=== PATIENT | female | born 1975 | race Caucasian/White ===

== ENCOUNTER 2019-10-27 08:25 | Outpatient (CLI) | payer BC, SELFPAY ==
--- NOTE | ~2019-10-27 | US_ITS ---
EXAMINATION: US OB <=14 wk fetus w TV DATE: 10/27/2019 09:16 INDICATION: Contracture supervision abnormal . Establish dating of during first imester. TECHNIQUE: Real-time pelvic ultrasound utilizing both a transvaginal and transabdominal probe was pe rformed. The interpreting radiologist was not present for the study. COMPARISON: 10/08/2018 FINDINGS: The uterus measures 12.2 x 7.6 x 6.3 cm. Small anechoic nabothian cyst at the cervix. There is an int rauterine gestational sac. A yolk sac and pole are identified. The crown rump length measures 5 mm, which correlates with an estimated gestational age of 6 weeks and 2 days. heart motion is identified measuring 129 beats per minute (bpm) by M-mode Doppler. The right ovary was not visualized. The left ovary measures 2.9 x 2.6 x 2.9 cm. After flow is identif ied in the left ovary. There is trace amount of free fluid in the cul-de-sac. IMPRESSION: 1. Single living fetus with heart rate of 129 bpm. 2. Gestational age by ultrasound of 6 weeks 2 day(s) +/- 4 day(s) with ultrasound estimated date of delivery (ANA) of 06/19/2020. Reviewed, dictated and finalized at location A. ALIZER IMPRESSION: 1. Single living fetus with heart rate of 129 bpm. 2. Gestational age by ultrasound of 6 weeks 2 day(s) +/- 4 day(s) with ultraso und estimated date of delivery (ANA) of 06/19/2020.
== END 2019-10-27 08:26 | disposition home or self-care (01) ==
PROVIDERS: Visit Provider Obstetrics & Gynecology
DX: Z34.91 Encounter for supervision of normal pregnancy, unspecified, first trimester (principal); Z3A.01 Less than 8 weeks gestation of pregnancy
CPT/HCPCS: 76801; 76817

== ENCOUNTER 2019-11-10 09:31 | Outpatient (CLI) | payer BC, SELFPAY ==
--- NOTE | ~2019-11-10 | US_ITS ---
EXAMINATION: US OB <= 14 weeks fetus DATE: 11/10/2019 10:06 INDICATION: Gestational dating. TECHNIQUE: Real-time transabdominal and transvaginal obstetric ultrasound. FINDINGS: Ultrasound dated 10/27/2019 The uterus measures 14.8 x 7.4 x 8.6 cm. There is an intrauterine gestational sac, with pole id entified. The crown rump length measures 2.29 cm. heart rate is 171 BPM. No evidence for subch orionic hemorrhage. Right ovary measures 3.4 x 1.8 x 2.4 cm. Left ovary measures 3.4 x 2.2 x 2.3 cm. No significant ovarian or adnexal abnormality. IMPRESSION: 1. SL IUP with an EGA of 8 weeks, 2 days (EDC by initial ultrasound of 06/19/2020). Reviewed, dictated and finalized at location A. ER GUARD IMPRESSION: 1. SL IUP with an EGA of 8 weeks, 2 days (EDC by initial ultrasound of 06/19/20 20).
== END 2019-11-10 09:32 | disposition home or self-care (01) ==
LOC: ANHIMG 09:33
PROVIDERS: Visit Provider Obstetrics & Gynecology
DX: Z32.01 Encounter for pregnancy test, result positive (principal); Z3A.08 8 weeks gestation of pregnancy
CPT/HCPCS: 76801

== ENCOUNTER 2020-04-22 07:48 | Outpatient (RCR) | payer BC, SELFPAY ==
--- NOTE | ~2020-04-22 | US_ITS ---
EXAMINATION: US OB limited DATE: 04/22/2020 08:46 INDICATION: Advanced maternal age, amniotic fluid index assessment, third trimester TECHNIQUE: Real-time ultrasound of the pelvis was performed. The interpreting radiologist was not pre sent for the study. COMPARISON: None. FINDINGS: There is a single living fetus in vertex presentation. The placenta is posterior/fundal. Fe donal cardiac activity and movement are noted. heart rate is 124 beats per minute (bpm). Th e amniotic fluid index is 14.8 cm which is normal (normal range: 8.8 cm to 23.8 cm). IMPRESSION: 1. Single living fetus in vertex presentation. 2. Normal amniotic fluid index. Reviewed, dictated and finalized at location A.
[2020-04-22 08:33] VITALS: BP 97/56; PULSE 61
== END 2020-04-29 08:44 | disposition home or self-care (01) ==
LOC: ANHOBOP 07:48
PROVIDERS: Visit Provider Obstetrics & Gynecology
DX: O09.513 Supervision of elderly primigravida, third trimester (principal); Z3A.31 31 weeks gestation of pregnancy
CPT/HCPCS: 59025; 76815

== ENCOUNTER 2020-06-07 08:44 | Outpatient (RCR) | payer BC, SELFPAY ==
[2020-04-25 22:46] VITALS: BP 114/57; PULSE 63
[2020-04-29 09:47] VITALS: BP 95/41; PULSE 62
[2020-05-06 10:20] VITALS: BP 106/55; PULSE 67
[2020-05-13 09:38] VITALS: BP 103/45; PULSE 65
[2020-05-22 11:16] VITALS: BP 98/40; PULSE 61
[2020-05-27 11:32] VITALS: BP 101/52; PULSE 63
[2020-05-31 09:07] VITALS: BP 101/56; PULSE 60
[2020-06-03 10:21] VITALS: BP 98/45; PULSE 64
--- NOTE | ~2020-06-07 | US_ITS ---
EXAMINATION: US OB limited w BPP DATE: 06/03/2020 11:04 CDT INDICATION: Evaluate well being and amniotic fluid index. TECHNIQUE: Real-time transabdominal limited obstetric ultrasound. FINDINGS: Comparison ultrasound dated 05/31/2020 There is a single living fetus in vertex presentation. The placenta is posterior without placenta pr evia. cardiac activity and movement is noted with a heart rate of 138 beats per minute. Biophysical profile: breathin of 2 movement: 2 of 2 tone: 2 of 2 Amniotic flud pocket: 2 of 2 Total score: 8 of 8 Amniotic fluid index is normal measuring 8.1 cm (normal range for gestational age is 7.5-24.4 cm). IMPRESSION: 1. Single living intrauterine in vertex presentation. 2: Total biophysical profile score of 8/8. 3: Normal BLAINE measures 8.1 cm. Reviewed, dictated and finalized at location B.
--- NOTE | ~2020-06-07 | US_ITS ---
EXAMINATION: US OB limited DATE: 04/29/2020 09:23 INDICATION: Advanced maternal age. Amniotic fluid index. Third trimester. TECHNIQUE: Real-time ultrasound of the pelvis was performed. COMPARISON: Ultrasound 04/22/2020 FINDINGS: There is a single fetus in vertex presentation. The placenta is fundal and posterior. heart ra te is 126 beats per minute (bpm). The amniotic fluid index is 19.0 cm, which is normal. IMPRESSION: 1. Single living fetus in vertex presentation. 2. Normal amniotic fluid index. Reviewed, dictated and finalized at location B.
--- NOTE | ~2020-06-07 | US_ITS ---
US OB limited 05/31/2020 08:58 Indication: Evaluate amniotic fluid. Procedure: High-resolution Limited obstetrical ultrasound Comparison: 05/27/2020 Findings: There is a single living intrauterine in vertex presentation. heart rate 11 4 BPM. Placenta is fundal without previa. BLAINE is normal measuring 8.1 cm (normal range for gestationa l age is 7.5-24.4 cm). Impression: 1: Normal BLAINE measures 8.1 cm. Reviewed, dictated and finalized at location A. Impression: 1: Normal BLAINE measures 8.1 cm.
--- NOTE | ~2020-06-07 | US_ITS ---
US OB limited w BPP DATE: 05/27/2020 09:32 INDICATION: Advanced maternal age TECHNIQUE: Real-time imaging and Doppler analysis COMPARISON: Real-time imaging and Doppler analysis FINDINGS: Live calderon intrauterine gestation, fetus in longitudinal lie, vertex presentation. Feta l heart rate of 131 bpm. Fundal placenta. Amniotic fluid volume is low, with BLAINE of 6.6 cm. 5th percentile BLAINE is 7.7 cm. 95th percentile BLAINE i s 24.9 cm. BIOPHYSICAL PROFILE reported by graphic art technician: breathin out of 2 movement: 2 out of 2 tone: 2 out of 2 Amniotic fluid pocket: 2 out of 2 Total score: 8 out of 8 IMPRESSION: Normal biophysical profile score of 8 out of 8 Oligohydramnios; BLAINE: 6.6 cm Reviewed, dictated and finalized at Location A. Reviewed, dictated and finalized at location A.
--- NOTE | ~2020-06-07 | US_ITS ---
EXAMINATION: US OB limited DATE: 05/06/2020 10:36 INDICATION: Amniotic fluid index. Third trimester. TECHNIQUE: Real-time ultrasound of the pelvis was performed. COMPARISON: Ultrasound 04/29/2020 FINDINGS: There is a single fetus in vertex presentation. The placenta is posterior and fundal. heart ra te is 132 beats per minute (bpm). The amniotic fluid index is 11.3 cm, which is normal. IMPRESSION: 1. Single living fetus in vertex presentation. 2. Normal amniotic fluid index. Reviewed, dictated and finalized at location A.
--- NOTE | ~2020-06-07 | US_ITS ---
US OB limited DATE: 06/07/2020 09:43 INDICATION: AMA Measure BLAINE. TECHNIQUE: Real-time imaging and Doppler analysis COMPARISON: 06/03/2020 obstetrical ultrasound with biophysical profile FINDINGS: Live calderon intrauterine gestation, fetus in vertex presentation, with heart rate of 125 bpm. Posterior fundal placenta. Amniotic fluid index measures 10.9 cm. 5th percentile BLAINE: 7.3 cm; 95th percentile BLAINE: 23.9 cm. IMPRESSION: BLAINE measures 10.9 cm, within more normal range Reviewed, dictated and finalized at Location A. Reviewed, dictated and finalized at location A.
--- NOTE | ~2020-06-07 | US_ITS ---
EXAMINATION: US OB limited DATE: 05/22/2020 11:02 INDICATION: Advanced maternal age. Decreased movement. Third trimester. TECHNIQUE: Real-time ultrasound of the pelvis was performed. COMPARISON: Ultrasound 05/13/2020 FINDINGS: There is a single fetus in vertex presentation. The placenta is fundal. heart rate is 134 beat s per minute (bpm). The amniotic fluid index is 10.4 cm, which is normal. IMPRESSION: 1. Single living fetus in vertex presentation. 2. Normal amniotic fluid index. Reviewed, dictated and finalized at location A.
--- NOTE | ~2020-06-07 | US_ITS ---
EXAMINATION: US OB limited DATE: 05/13/2020 09:30 INDICATION: Assess amniotic fluid index during third trimester of TECHNIQUE: Real-time ultrasound of the pelvis was performed. The interpreting radiologist was not pre sent for the study. COMPARISON: 05/06/2020 FINDINGS: There is a single living fetus in vertex presentation. The placenta is posterior fundal. heart rate is 135 beats per minute (bpm). The amniotic fluid index is 21.2 cm, which is normal (5th%-95%: 8.1-24.8 cm at 34 weeks estimated gestational age). IMPRESSION: 1. Single living fetus in vertex presentation with heart rate of 135 bpm. 2. Normal amniotic fluid index of 21.2 cm. Reviewed, dictated and finalized at location A. IMPRESSION: 1. Single living fetus in vertex presentation with heart rate of 135 bpm . 2. Normal amniotic fluid index of 21.2 cm.
[2020-06-07 09:19] VITALS: BP 104/63; PULSE 60
== END 2020-06-10 08:00 | disposition home or self-care (01) ==
LOC: ANHOBOP 08:44
PROVIDERS: Family Provider Obstetrics & Gynecology; Visit Provider Obstetrics & Gynecology
DX: O36.8130 Decreased fetal movements, third trimester, not applicable or unspecified (principal); O09.513 Supervision of elderly primigravida, third trimester; Z3A.32 32 weeks gestation of pregnancy; Z3A.33 33 weeks gestation of pregnancy; Z3A.34 34 weeks gestation of pregnancy; Z3A.36 36 weeks gestation of pregnancy; Z3A.37 37 weeks gestation of pregnancy; Z3A.38 38 weeks gestation of pregnancy
CPT/HCPCS: 59025; 76815; 76819

== ENCOUNTER 2020-06-08 18:03 | Inpatient (IN) | payer BC, SELFPAY ==
[2020-06-08] VITALS (15 sets, daily range): BP systolic 66–127; BP diastolic 42–68; PULSE 60–70; RESP 18–20; TEMP 36.5–36.8; BMI 47.8
--- NOTE | 2020-06-08 18:03 | LDADM ---
This patient, Tammy Del Valle, was admitted to Labor/Delivery/Recovery 106 on 06/08/20 at 18:03. Plans for labor, pain management and were discussed with patient. Patient/family oriented to hospital policies and general routines including ID bracelet, bed and alarms, visiting hours, pain management, procedures, bathroom and other care routines, personal items, smoking policy, room service/diet and guest tray routines, security routines, and visiting hours. Patient/Family are encouraged to report perceived risks to care and to ask questions if they do not understand what they are told or what they should do. See OBIX for further documentation.
[2020-06-08] MEDS: AMPICILLIN 2 GM/NS 100 ML 2 GM/100 ML BAG IVPB (18:57)
[2020-06-08] MEDS: LACTATED RINGERS 1,000 ML 125 ML IV CONT (18:57)
[2020-06-08 18:58] LABS: Basophils Percent Auto 0.4 % (0.2-1.2); Eosinophils Absolute Auto 0.1 K/mm3 (0-0.3); Eosinophils Percent Auto 1.2 % (0-4.4); Hematocrit 37.1 % (37.0-47.0); Hemoglobin 12.7 g/dL (12.0-15.0); Immature Granulocyte Absolute 0.05 K/mm3 (0.00-0.031); Immature Granulocyte Percent A 0.5 % (0-0.5); Lymphocytes Absolute Auto 2.46 K/mm3 (0.9-3.2); Lymphocytes Percent Auto 22.3 % (18.3-44.2); Mean Corpuscular HGB Conc 34.2 g/dl (32-36); Mean Corpuscular Hemoglobin 31.5 pg (26-34); Mean Corpuscular Volume 92.1 fl (80-100); Monocytes Absolute Auto 0.7 K/mm3 (0.1-0.6); Monocytes Percent Auto 6.7 % (2.6-8.5); Neutrophils Absolute Auto 7.6 K/mm3 (1.3-6.7); Neutrophils Percent Auto 68.9 % (45.5-73.1); Platelet Count Result 210 k/mm3 (150-375); Red Blood Count 4.03 M/mm3 (4.2-5.4); Red Cell Distribution Width 12.4 % (11.5-14.5)
[2020-06-08 19:51] LABS: HIV 1/2 Ab P24 Ag Result Negative (Negative)
[2020-06-08] MEDS: OXYTOCIN 30 UNITS/NS 500 ML 30 UNITS/500 ML BAG IV CONT (22:43)
[2020-06-08] MEDS: AMPICILLIN 1 GM/NS 50 ML 1 GM/50 ML BAG IVPB (22:57)
[2020-06-09] VITALS (115 sets, daily range): BP systolic 68–167; BP diastolic 34–121; PULSE 48–222; RESP 16–20; TEMP 36.4–37.1; O2SAT 95–100
[2020-06-09] MEDS: AMPICILLIN 1 GM/NS 50 ML 1 GM/50 ML BAG IVPB ×2 (03:11→08:01)
[2020-06-09] MEDS: fentaNYL CITRATE INJ (*CRX) 100 MCG/2 ML VIAL 50 MCG IV PUSH (04:13)
[2020-06-09] MEDS: LACTATED RINGERS 1,000 ML 125 ML IV CONT (04:34)
--- NOTE | 2020-06-09 04:40 | WPDANESEPPF ---
Anes - Initial Pre Proc Eval Procedure: labor epidural Date/Time: 06/09/20 04:40 Surgeon: Emmett Gipson MD Pre Op Diagnosis: labor pain Pre Op Diagnosis: SROM Patient Data Age: 44 Gender: F Height: 1.68 m Weight: 134.5 kg Last Vital Signs Temp 36.8 C 06/09/20 03:13 Pulse 65 06/09/20 04:39 Resp 18 06/09/20 03:13 BP 97/70 L 06/09/20 04:39 Pulse Ox 100 06/09/20 04:38 Allergies Allergy/AdvReac Type Severity Reaction Status Date / Time cefprozil Allergy Unknown Hives Verified 06/03/20 08:34 Home Medications Medication Instructions Recorded Confirmed Type vits 75-iron 28 mg-folic 1 pkg PO DAILY 11/19/19 06/08/20 History acid 800 mcg-omega-3 oral combo pack cetirizine [Zyrtec] 10 mg PO DAILY PRN 04/29/20 06/08/20 History cholecalciferol (vitamin D3) 50 mcg PO DAILY 04/29/20 06/08/20 History [Vitamin D3] nadolol 40 mg PO HS 04/29/20 06/08/20 History Laboratory Tests 06/08/20 06/08/20 06/08/20 18:51 18:51 18:51 WBC 11.0 K/mm3 H K/mm3 (4.5-10.0) RBC 4.03 M/mm3 L M/mm3 (4.2-5.4) Hgb 12.7 g/dL g/dL (12.0-15.0) Hct 37.1 % % (37.0-47.0) MCV 92.1 fl fl (80-100) MCH 31.5 pg pg (26-34) MCHC 34.2 g/dl g/dl (32-36) RDW 12.4 % % (11.5-14.5) Plt Count 210 k/mm3 k/mm3 (150-375) MPV 11.0 fl H fl (7.4-10.4) Immature Gran % (Auto) 0.5 % % (0-0.5) Neut % (Auto) 68.9 % % (45.5-73.1) Lymph % (Auto) 22.3 % % (18.3-44.2) [place] % (Auto) 6.7 % % (2.6-8.5) Eos % (Auto) 1.2 % % (0-4.4) Baso % (Auto) 0.4 % % (0.2-1.2) Lymph # (Auto) 2.46 K/mm3 K/mm3 (0.9-3.2) [place] # (Auto) 0.7 K/mm3 H K/mm3 (0.1-0.6) Eos # (Auto) 0.1 K/mm3 K/mm3 (0-0.3) Baso # (Auto) 0.0 K/mm3 K/mm3 (0.0-0.1) Abs Immat Gran (auto) 0.05 K/mm3 H K/mm3 (0.00-0.031) Absolute Neuts (auto) 7.6 K/mm3 H K/mm3 (1.3-6.7) Absolute Nucleated RBC 0.0 K/mm3 K/mm3 (0.0-0.012) Nucleated RBC % 0.0 % % (0.0-0.2) RPR Pending HIV 1&2 Ab/P24 Ag 4thGn Negative (Negative) Blood Type Antibody Screen 06/08/20 18:51 WBC RBC Hgb Hct MCV MCH MCHC RDW Plt Count MPV Immature Gran % (Auto) Neut % (Auto) Lymph % (Auto) [place] % (Auto) Eos % (Auto) Baso % (Auto) Lymph # (Auto) [place] # (Auto) Eos # (Auto) Baso # (Auto) Abs Immat Gran (auto) Absolute Neuts (auto) Absolute Nucleated RBC Nucleated RBC % RPR HIV 1&2 Ab/P24 Ag 4thGn Blood Type A Positive Antibody Screen Negative Patient hx anesthesia problems: none Family hx anesthesia problems: none PMFSH Social History Social History Smoking status: Never smoker Second hand tobacco smoke exposure: No Alcohol intake: former Substance use: never Spiritual care concerns: No Anes - Eval Final PreProcedure Day of Procedure 06/09/20 04:40 Patient weight: morbidly obese ASA classification: III Anesthesia type and monitoring: regional epidural Informed Consent: The patient's anesthetic plan and its attendant risks and benefits were discussed with the patient/family/POA. Questions were solicited and answers provided to the satisfaction of the patient/family/POA.
--- NOTE | 2020-06-09 07:29 | PM.IMHP ---
H&P: HPI History of Present Illness Date/Time: 06/09/20 07:29 Chief complaint: SROM Narrative: Tammy Del Valle is a 44 year old female at 38/4/7 by EDC 06/19/2020 established by first trimester ultrasound that was not consistent with period. Presented with SROM 1600 clear. 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 PNC significant for AMA, history of prolonged QT, asymptomatic. On betablocker. Has had normal testing and normal growth ultrasounds. Review of Systems Review of Systems: All systems reviewed & are unremarkable except as noted in HPI and below Constitutional: Constitutional: Reports no additional constitutional complaints and Denies headache(s) Eyes: Eyes: Denies spots in vision ENT: Reports system reviewed and no additional complaints, except as documented and Denies headache(s) Cardiovascular: Cardiovascular: Denies chest pain and Denies dyspnea Respiratory: Respiratory: Denies dyspnea Gastrointestinal: Gastrointestinal: Reports no additional gastrointestinal complaints Genitourinary: Genitourinary: Reports amenorrhea Musculoskeletal: Musculoskeletal: Reports no additional musculoskeletal complaints Integumentary/Breasts: Skin/Breast: Denies breast mass and Denies rash Neurologic: Denies headache(s) Psychiatric: Psychiatric: Reports no additional psychiatric complaints PMFSH Social History Social History Smoking status: Never smoker Second hand tobacco smoke exposure: No Alcohol intake: former Substance use: never Spiritual care concerns: No Meds Home Medications and Allergies Home Medications Medication Instructions Recorded Confirmed Type vits 75-iron 28 mg-folic 1 pkg PO DAILY 11/19/19 06/08/20 History acid 800 mcg-omega-3 oral combo pack cetirizine [Zyrtec] 10 mg PO DAILY PRN 04/29/20 06/08/20 History cholecalciferol (vitamin D3) 50 mcg PO DAILY 04/29/20 06/08/20 History [Vitamin D3] nadolol 40 mg PO HS 04/29/20 06/08/20 History Allergies Allergy/AdvReac Type Severity Reaction Status Date / Time cefprozil Allergy Unknown Hives Verified 06/03/20 08:34 Vital Signs Vital Signs - 24 hr 06/08/20 18:20 06/08/20 18:21 06/08/20 18:31 Temperature 97.9 F Pulse Rate 64 60 Respiratory Rate 20 Blood Pressure 117/61 111/57 L Pulse Oximetry 06/08/20 19:14 06/08/20 19:15 06/08/20 21:02 Temperature 97.7 F 97.9 F Pulse Rate 62 Respiratory Rate 18 20 Blood Pressure 94/45 L Pulse Oximetry 06/08/20 21:03 06/08/20 22:26 06/08/20 22:46 Temperature Pulse Rate 62 70 62 Respiratory Rate Blood Pressure 101/68 127/46 L 105/51 L Pulse Oximetry 06/08/20 22:59 06/08/20 23:01 06/08/20 23:07 Temperature 98.3 F Pulse Rate 68 63 Respiratory Rate 20 Blood Pressure 66/55 L 104/42 L Pulse Oximetry 06/08/20 23:16 06/08/20 23:31 06/08/20 23:46 Temperature Pulse Rate 61 65 65 Respiratory Rate Blood Pressure 106/43 L 94/45 L 103/49 L Pulse Oximetry 06/09/20 00:01 06/09/20 00:16 06/09/20 00:31 Temperature Pulse Rate 60 59 L 59 L Respiratory Rate Blood Pressure 106/52 L 113/53 L 113/72 Pulse Oximetry 06/09/20 00:46 06/09/20 01:00 06/09/20 01:01 Temperature 97.6 F Pulse Rate 53 L 55 L Respiratory Rate 20 Blood Pressure 115/62 109/60 Pulse Oximetry 06/09/20 01:17 06/09/20 01:31 06/09/20 01:46 Temperature Pulse Rate 68 82 112 H Respiratory Rate Blood Pressure 127/71 118/37 L 83/42 L Pulse Oximetry 06/09/20 02:00 06/09/20 02:17 06/09/20 02:30 Temperature Pulse Rate 112 H 75 80 Respiratory Rate Blood Pressure 106/72 88/54 L 108/90 Pulse Oximetry 06/09/20 02:46 06/09/20 03:02 06/09/20 03:13 Temperature 98.2 F Pulse Rate 68 71 Respiratory Rate 18 Blood Pressure 109/50 L 132/87 Pulse Oximetry 06/09/20 03:16 06/09/20 03:30 06/09/20 03:46 Temperature Pulse Rate 92 67 7
--- NOTE | 2020-06-09 07:32 | PM.OBPNLAB ---
Pain Control Date/time seen: 06/09/20 07:32 FHT 120, Cat 1, continue pitocin -/-2 soft.
[2020-06-09] MEDS: OXYTOCIN 30 UNITS/NS 500 ML 30 UNITS/500 ML BAG 125 UNITS IV CONT (09:24)
[2020-06-09 11:11] LABS: Rapid Plasma Reagin Non-Reactive (NonReactive)
[2020-06-09] MEDS: WITCH HAZEL 40 PADS 1 PAD (11:19)
[2020-06-09] MEDS: BENZOCAINE 20% AER SPR (*SP) 56 GM CAN 1 SPRAY (11:19)
[2020-06-09] MEDS: IBUPROFEN 600 MG TABLET (11:19)
--- NOTE | 2020-06-09 12:15 | PC.NURSE ---
Consulted with patient, mother called out for assist with waking and observation of latch. Mother states she has a HX of low milk supply with other children. Children have had weight loss and low output. Mother does not want to be stressed with this infant and may supplement. Discussed first and then offering 10-15 mls after . Mother questions if she should initiate pumping, advised to allow infant to nurse for the first 24 hours, if he is not satisfied or has low blood glucose or output then begin pumping and supplementation after each feeding. Reviewed infant feeding cues, frequencies, duration of feedings, feeding elimination flow sheet, and signs of adequate intake. Demonstrated stimulation techniques to wake for feeding. Infant easily awoken and showing feeding cues. Assisted with infant to breast. Reviewed positioning/alignment in cross cradle, holding breast in U hold and guided asymmetrical latch on. was able to latch correctly with first attempt. Infant nursed eagerly, with steady draws and frequent swallowing noted. Reviewed signs of a correct latch, effective nursing and suck swallow ratio. Infant was able to maintain latch without discomfort to mother. Nipple care reviewed. Suggested to stimulate while feeding to keep infant awake and nursing effectively for increased intake and to assist with maintaining deep latch. Demonstrated how to adjust latch more deeply while feeidng. Instructed mother to call out for RN assistance if she is unable to latch infant for feeding or she has discomfort with nursing. Instructed feeding should be initiated three hours from start of last feeding or if feeding cues are noted before. Mother voiced understanding of information shared.
--- NOTE | 2020-06-09 12:32 | OBPPTRN ---
Patient transferred to post room #288 via wheelchair at 1204. Support person present. with parents in bassinet at bedside. Oriented to unit, room, information board, rooming in, admission packet and security measures. Patient verbalizes understanding.
[2020-06-09] MEDS: DOCUSATE SODIUM 100 MG CAPSULE PO (14:36)
[2020-06-10 05:10] LABS: Hematocrit 31.8 % (37.0-47.0); Hemoglobin 10.9 g/dL (12.0-15.0)
--- NOTE | 2020-06-10 05:44 | PM.OBPRVD ---
OB - Delivery Note Procedure Delivery date: 06/09/20 Procedure: Spontaneous vaginal delivery Induction method: none Delivery augmentation: pitocin Delivery monitor: external FHT and internal uterine Route of delivery: Laceration description: Vaginal - 1st Degree Delivery repair: vicryl (3.0 vicryl) Specimen: No Estimated blood loss (mL): 150 Disposition: floor Complications: None Narrative: Patient was admitted after confirmed rupture of membranes. Her contractions were irregular. Cervical exam . She had pitocin augmentation. She progressed to active labor. She had mild early decelerations. Variability was good. She dilated to complete. Early decelerations noted. She pushed approximately 4 times and delivered a male . There was a loose nuchal cord manually reduced. Infant was placed on maternal abdomen. Delayed cord clamping for 20 sec. Infant was then taken to warmer. There was terminal meconium noted. Placenta delivered spontaneously and intact. She sustained a first degree vaginal laceration repaired with 3.0 vicryl. [place] Baby Date of : 06/09/20 Time of : 08:40 Weeks of gestation at delivery: 38 Infant gender: Male Weight (pounds): 7 Weight (ounces): 5 presentation: vertex position: Left Occiput Anterior Placenta delivery description: Spontaneous cord vessel description: Nuchal Cord, Loose and Clamped/Cut score one minute: 7 score five minutes: 9
[2020-06-10 07:40] VITALS: BP 92/50; PULSE 56; RESP 18; TEMP 36.7; O2SAT 99
[2020-06-10] MEDS: DOCUSATE SODIUM 100 MG CAPSULE PO (09:09)
--- NOTE | 2020-06-10 10:30 | PC.NURSE ---
Consulted with patient, mother called out for assist with waking , reporting has been sleepy since circumcision. Mother has concerns is satisfied after feedings and is considering supplementing after feedings due to HX of low milk supply. Discussed signs when supplementation should be initiated every feeding. Mother reports she will supplement and not allow to have weight loss and low output as she did with first three children. Encouraged mother to begin with 10-15 mls and increase as needed Reviewed feeding cues, frequencies, duration of feedings, feeding elimination flow sheet, and signs of adequate intake. Demonstrated stimulation techniques to wake for feeding. Several minutes of stimulation before awake and showing feeding cues. Assisted with to breast. Reviewed positioning/alignment in cross cradle, holding breast in U hold and guided asymmetrical latch on. was able to latch correctly with first attempt. Infant nursed eagerly, with steady draws and frequent swallowing noted. Reviewed signs of a correct latch, effective nursing and suck swallow ratio. was able to maintain latch without discomfort to mother. Nipple care reviewed. Suggested to stimulate while feeding to keep infant awake and nursing effectively for increased intake and to assist with maintaining deep latch. Demonstrated how to adjust latch more deeply while feeding. Mother states she would like to be discharged after 24 hours. Mother is feeding as required and waking to feed if needed. Infant has had at least 8 effective feedings in the past 24 hours, and is currently meeting outcomes for weight, output, jaundice and feeding frequencies. Mother states she feels confident to continue effective /supplementation at home. Reviewed transition to breast milk, signs of adequate intake, and engorgement/relief. Instructed to call ICP if intake/output less than required. Reviewed regular medications mother is taking. Information provided per Eli. Reviewed community resources on the [facility] website and in the Mom/Baby guide. Information on outpatient services provided. Mother has no further questions at this time.
--- NOTE | 2020-06-10 11:00 | PC.NURSE ---
Patient viewed the discharge video Mother & Baby Care, The First Two Weeks . Patient was given the opportunity and encouraged to ask questions. Patient verbalized understanding of information shared and has been given the mother/baby guide for home reference.
--- NOTE | 2020-06-10 11:06 | P.PNOB_ITS ---
OB - PN: Subj Subjective Date/time seen: 06/10/20 11:06 Patient comments: pain well controlled, tolerating diet and other (Decreasing lochia.) baby status: doing well and nursing well OB - PN: Obj Data Labs CBC & Chem 7: 06/10/20 04:11 Labs: Laboratory Results - last 24 hr 06/08/20 06/10/20 18:51 04:11 Hgb 10.9 L Hct 31.8 L RPR Non-reactive OB - PN A/P Plan day: 1 Plan: routine care Comments: Patient doing well. She desires to go home. She is ambulating and has no significant pain. Will discharge home. Discharge precautions discussed. Time Spent With Patient Time: Total time spent is greater than 50% in coordination of care (as documented) at patient's floor/unit and/or counseling patient: Exam Psych: Affect: normal affect Other: Abd: fundus firm below umbilicus, n ontender Perineum: healing Ext: nontender
--- NOTE | 2020-06-10 11:08 | PM.OBDSVD ---
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 Status: Acute (2) Spontaneous rupture of membranes: Status: Acute (3) Supervision of elderly multigravida, second trimester: Code(s): O09.522 - Supervision of elderly multigravida, second trimester Status: Acute (4) History of prolonged Q-T interval on ECG: Code(s): Z87.898 - Personal history of other specified conditions Status: Acute OB - DS: Summary OB Procedures : NST OB Procedures Intrapartum: Spontaneous Vag Delivery OB Procedures: : None Time Spent with Patient Time attestation: Total time spent providing and/or coordinating discharge services: Exam Psych: Affect: normal affect Other: Abd: fundus firm below umbilicus, nontender Perineum: healing Ext: nontender DS: Data Data Completed and Pending Labs on day of discharge: Labs from last 24 hours 06/10/20 06/08/20 04:11 18:51 Hgb 10.9 L Hct 31.8 L RPR Non-reactive Discharge Plan Discharge Attending physician on discharge: Emmett Gipson Discharging Clinician: Emmett Gipson Anticipated Discharge Date/Time: 06/10/20 11:09 Patient Disposition: Home, Self-Care Activity: may shower and pelvic rest Diet: regular Discharge Instructions: Take previously prescribed medication. Take daily PNV. May take Ibuprofen and or Tylenol for pain. Education: Mom and Baby Guide and Preeclampsia Handout Given to: Mother Follow-Up: Call your delivering provider's office for an appointment to be seen in: 4-6 weeks Mom and baby should come to the [facility] for the follow-up appointment. Appointment Date/Time: June 11, 2020 at 11:00 am What to expect at your follow-up visit: Physical Assessment Call [phone] if you are unable to keep your appointment time. BREAST CARE: * Wear a snug supportive bra. * For engorgement discomfort: Breast Feeding: * Apply warm moist washcloths * Express milk as needed to relieve engorgement * Wear loose clothing Bottle Feeding: * May apply ice packs * For sore nipples: * Identify correct latch-on * Apply warm moist washcloths before and after nursing * Air dry nipples after nursing * May apply Lansinoh cream to nipples EPISIOTOMY/PERINEAL CARE: * Until bleeding stops, use your maria a bottle after urinating * Change your pad frequently throughout the day * You may take sitz baths several times a day (fill your bathtub with warm water and soak for 20 minutes.) Do NOT bathe in the water * No tub baths until seen by your physician - You may shower ACTIVITY: * Rest as much as possible. * Do not exercise or lift anything heavier than your baby (such as laundry or other children.) * Avoid stairs or driving as much as possible. * Do not put anything into the vagina. No douching, tampons, or sexual activity until seen by physician. NOTIFY PHYSICIAN IF YOU HAVE ANY QUESTIONS OR IF ANY OF THE FOLLOWING SYMPTOMS OCCUR: * If your episiotomy or incision becomes red, swollen, or more painful than what you have experienced in the hospital. * If your vaginal bleeding becomes foul smelling. * If your vaginal bleeding becomes more heavy than a period or if your bleeding changes from pink to bright red. However, you may pass an occasional walnut-sized clot once or twice for the first week . * If you experience a sharp, shooting pain in you calves. * If you discover a hard, reddened area on your breast or if you experience flu-like symptoms. DIET: * Eat regular, well-balanced meals. * Drink plenty of fluids daily. If , drink to thirst. Patient Instructions: Antibiotic Form Stand Alone Forms: General Disc
[2020-06-11 11:01] VITALS: BP 106/64; PULSE 60; RESP 16; TEMP 36.8; O2SAT 99
== END 2020-06-10 13:24 | disposition home or self-care (01) | DRG 807 ==
LOC: ANHLDR 18:32 → ANHOB2 06-09 12:07
PROVIDERS: Admitting Provider Obstetrics & Gynecology; Visit Provider Obstetrics & Gynecology
DX: O99.824 Streptococcus B carrier state complicating childbirth (principal); Z37.0 Single live birth; O69.81X0 Labor and delivery complicated by cord around neck, without compression, not applicable or unspecified; O77.0 Labor and delivery complicated by meconium in amniotic fluid; O70.0 First degree perineal laceration during delivery; Z3A.38 38 weeks gestation of pregnancy; Z86.79 Personal history of other diseases of the circulatory system; Z23 Encounter for immunization
CPT/HCPCS: 36415; 84112; 85014; 85018; 85025; 86592; 86703; 86850; 86900; 86901; 90471; 90686; A9270; G0008; G0432; J0290; J2590; J3010; J7120

== ENCOUNTER 2020-09-25 09:43 | Outpatient (CLI) | payer BC, SELFPAY ==
--- NOTE | ~2020-09-25 | MM_ITS ---
EXAMINATION: MM screening [facility] BI w loyd HISTORY: Screening mammogram TECHNIQUE: Craniocaudal and mediolateral oblique 3-D tomosynthesis images were obtained and synthetic 2-D images were generated. CAD analysis was submitted and interpreted. COMPARISON: 03/30/2019, 03/20/2008 BREAST PARENCHYMAL COMPOSITION: The breasts are heterogeneously dense, which may obscure small masses . FINDINGS: There is no evidence of suspicious mass, calcification, or architectural distortion to sugg est malignancy in either breast. There has been no suspicious interval change. IMPRESSION: 1. No mammographic evidence of malignancy. 2. Recommend routine screening mammography in one year. BI-RADS Category 1: Negative Reviewed, dictated and finalized at location A. SECRETARY
== END 2020-09-25 09:44 | disposition home or self-care (01) ==
LOC: ANHIMG 09:46
PROVIDERS: Visit Provider Obstetrics & Gynecology
DX: Z12.31 Encounter for screening mammogram for malignant neoplasm of breast (principal)
CPT/HCPCS: 77063; 77067

== ENCOUNTER → 2022-11-17 10:16 | Outpatient (CLI) | payer BC, SELFPAY ==
--- NOTE | ~2022-11-17 | XR_ITS ---
Left Knee Technique: AP, lateral, and sunrise views were obtained. Clinical History: Pain Findings: No fracture or dislocation is seen. Osseous alignment is anatomic. Mild tricompartmental de generative spurring noted. Soft tissues are unremarkable. No joint effusion is seen. Impression: No acute abnormality. Mild tricompartmental degenerative spurring. Reviewed, dictated and finalized at [facility]. BREAKDOWN PROCESSOR Impression: No acute abnormality. Mild tricompartmental degenerative spurring.
== END ==
PROVIDERS: PCP Family Medicine; Visit Provider Physician Assistant
DX: M25.562 Pain in left knee (principal); M76.9 Unspecified enthesopathy, lower limb, excluding foot
CPT/HCPCS: 73562

== ENCOUNTER 2024-05-25 13:51 | Outpatient (CLI) | payer BC, SELFPAY ==
--- NOTE | ~2024-05-25 | US_ITS ---
EXAMINATION: US pelvic complete w TV DATE: 05/25/2024 14:20 INDICATION: Excessive and frequent menstruation. TECHNIQUE: Multiple transabdominal and transvaginal sonographic images of the pelvis were obtained. COMPARISON: None. FINDINGS: TRANSABDOMINAL ULTRASOUND: The uterus measures 10.3 x 5.0 x 7.0 cm. There is no free fluid in the pelvis. TRANSVAGINAL ULTRASOUND: The endometrial complex measures 10 mm in thickness. There is an intrauterine device in expected posi tion. There is a 2.1 cm intramural fibroid. The right ovary measures 3.0 x 2.1 x 2.2 cm. The left ova ry measures 2.6 x 1.8 x 2.1 cm. IMPRESSION: 1. Intrauterine device in expected position. 2. Uterine fibroid. Reviewed, dictated and finalized at location A.
== END 2024-05-25 13:52 | disposition home or self-care (01) ==
LOC: MICIMG 13:52
PROVIDERS: PCP Obstetrics & Gynecology; Visit Provider Obstetrics & Gynecology
DX: D25.1 Intramural leiomyoma of uterus (principal); Z97.5 Presence of (intrauterine) contraceptive device
CPT/HCPCS: 76830; 76856

== ENCOUNTER 2025-07-03 10:15 | Outpatient (CLI) | payer BC, SELFPAY ==
--- NOTE | ~2025-07-03 | US_ITS ---
EXAMINATION: US pelvic complete w TV DATE: 07/03/2025 10:48 INDICATION: Pelvic pain. 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 TECHNIQUE: Multiple transabdominal and transvaginal sonographic images of the pelvis were obtained. COMPARISON: Ultrasound pelvis 05/25/2024 FINDINGS: TRANSABDOMINAL ULTRASOUND: The uterus measures 9.7 x 5.5 x 4.6 cm. There is no free fluid in the pelvis. TRANSVAGINAL ULTRASOUND: The endometrial complex measures 10 mm in thickness. There is a 2.7 cm subserosal fibroid. There are nabothian cysts in the cervix. The right ovary measures 3.2 x 2.6 x 2.3 cm. The left ovary measures 2.6 x 1.5 x 2.0 cm. There is normal vascular flow in the ovaries. IMPRESSION: 1. 2.7 cm uterine fibroid. Reviewed, dictated and finalized at location E. IMPRESSION: 1. 2.7 cm uterine fibroid.
== END 2025-07-03 10:16 | disposition home or self-care (01) ==
LOC: GOSHIMG 10:16
PROVIDERS: PCP Obstetrics & Gynecology; Visit Provider Obstetrics & Gynecology
DX: D21.9 Benign neoplasm of connective and other soft tissue, unspecified (principal); N92.0 Excessive and frequent menstruation with regular cycle
CPT/HCPCS: 76830; 76856